=== PATIENT | male | born 1950 | race Caucasian/White ===

== ENCOUNTER 2017-06-22 12:27 | Inpatient (IN) | payer BC, MEDICARE ==
[~2017-06-22] VITALS: Ht 185.4 cm; Wt 122.1 kg
[~2017-06-22 12:27] MED LIST: ALLO300 PO; AMLO5 PO; ASPI325 PO; ASPI81CH PO; CYAN500 PO; Diovan320 MG PO; ERGO400 PO; INDO50; Indomethacin50 MG PO; METO50 PO; PANT40 PO; ROSU10TA PO; TRAM50 PO
[2017-06-22 13:11] LABS: BASOPHILS ABSOLUTE AUTO 0.07 K/mm3 (0.00-0.23); BASOPHILS PERCENT AUTO 0 % (0-2); EOSINOPHILS ABSOLUTE AUTO 0.09 K/mm3 (0.00-0.68); EOSINOPHILS PERCENT AUTO 1 % (0-6); Hematocrit 26.9 % (37.0-53.0); Hemoglobin 8.7 g/dL (13.5-17.5); IMMATURE GRAN ABSOLUTE AUTO 0.21 K/mm3 (0.00-0.10); IMMATURE GRAN PERCENT AUTO 1 % (0-1); LYMPHOCYTES ABSOLUTE AUTO 2.22 K/mm3 (0.84-5.20); LYMPHOCYTES PERCENT AUTO 13 % (21-46); MONOCYTES ABSOLUTE AUTO 0.98 K/mm3 (0.16-1.47); MONOCYTES PERCENT AUTO 6 % (4-13); Mean Corpuscular HGB 29.9 pg (26.0-34.0); Mean Corpuscular HGB Conc 32.3 g/dL (31.5-36.5); Mean Corpuscular Volume 92 fL (80-100); Mean Platelet Volume 10.7 fL (9.1-12.4); NEUTROPHILS ABSOLUTE AUTO 13.92 K/mm3 (1.96-9.15); NEUTROPHILS PERCENT AUTO 80 % (41-73); NRBC ABSOLUTE 0.02 K/mm3 (0.00-0.02); NRBC Auto 0.1 /100 WBC (0.0-0.2); Platelet Count 239 K/mm3 (150-400); RDW Coefficient Variation 17.1 % (11.7-14.2); RDW Standard Deviation 57.4 fL (35.1-46.3); Red Blood Cell Count 2.91 M/mm3 (4.30-5.90); White Blood Cell Count 17.49 K/mm3 (4.00-11.30)
[2017-06-22 13:22] LABS: International Normalized Ratio 1.07; Prothrombin Time Results 11.1 Sec (9.7-11.5)
[2017-06-22 13:33] LABS: Albumin, Blood 3.2 g/dL (3.4-5.0); Albumin/Globulin Ratio 0.9 (0.8-1.8); Bilirubin, Total 0.4 mg/dL (0.1-1.0); Bun/Creatinine Ratio 37.6 (12.0-20.0); Calcium, Blood 8.1 mg/dL (8.5-10.1); Creatinine, Blood 1.73 mg/dL (0.60-1.20); Globulin, Blood 3.6 g/dL (2.2-4.0); Potassium, Blood 3.6 mmol/L (3.5-5.5); Total Protein, Blood 6.8 g/dL (6.4-8.2)
[2017-06-22] MEDS ORDERED: METO50 PO (13:43)
[2017-06-22 18:46] LABS: Bilirubin, Urine Neg (Neg); Blood, Urine Neg (Neg); Glucose Qualitative, Urine Neg (Neg); Ketones, Urine Neg (Neg); Leukocyte Esterase, Urine Neg (Neg); Nitrite, Urine Neg (Neg); Protein, Urine Neg (Neg); Specific Gravity, Urine 1.015 (1.003-1.022); Urobilinogen, Urine NORM (Normal)
[2017-06-22 18:58] LABS: Hematocrit 24.5 % (37.0-53.0); Hemoglobin 7.9 g/dL (13.5-17.5)
[2017-06-22 18:58] LABS: Appearance, Urine Clear (Clear); Color, Urine Pale Yellow (P-Yellow)
[2017-06-23 02:37] LABS: BASOPHILS ABSOLUTE AUTO 0.04 K/mm3 (0.00-0.23); BASOPHILS PERCENT AUTO 0 % (0-2); EOSINOPHILS ABSOLUTE AUTO 0.26 K/mm3 (0.00-0.68); EOSINOPHILS PERCENT AUTO 2 % (0-6); Hemoglobin 7.1 g/dL (13.5-17.5); IMMATURE GRAN PERCENT AUTO 1 % (0-1); LYMPHOCYTES ABSOLUTE AUTO 2.74 K/mm3 (0.84-5.20); LYMPHOCYTES PERCENT AUTO 19 % (21-46); MONOCYTES ABSOLUTE AUTO 0.94 K/mm3 (0.16-1.47); MONOCYTES PERCENT AUTO 7 % (4-13); Mean Corpuscular HGB 30.1 pg (26.0-34.0); Mean Corpuscular HGB Conc 32.3 g/dL (31.5-36.5); Mean Corpuscular Volume 93 fL (80-100); Mean Platelet Volume 11.1 fL (9.1-12.4); NEUTROPHILS ABSOLUTE AUTO 10.04 K/mm3 (1.96-9.15); NEUTROPHILS PERCENT AUTO 71 % (41-73); NRBC ABSOLUTE 0.02 K/mm3 (0.00-0.02); NRBC Auto 0.1 /100 WBC (0.0-0.2); Platelet Count 198 K/mm3 (150-400); RDW Coefficient Variation 17.1 % (11.7-14.2); RDW Standard Deviation 56.2 fL (35.1-46.3); Red Blood Cell Count 2.36 M/mm3 (4.30-5.90); White Blood Cell Count 14.22 K/mm3 (4.00-11.30)
[2017-06-23 08:35] LABS: Hematocrit 22.1 % (37.0-53.0); Hemoglobin 7.1 g/dL (13.5-17.5)
[2017-06-23 19:19] LABS: Hematocrit 21.4 % (37.0-53.0); Hemoglobin 6.8 g/dL (13.5-17.5)
[2017-06-24 06:09] LABS: Hepatitis C Antibody Non Reactive (NR)
[2017-06-24 08:18] LABS: Hematocrit 26.7 % (37.0-53.0); Hemoglobin 8.7 g/dL (13.5-17.5)
[2017-06-24 19:19] LABS: Hematocrit 26.1 % (37.0-53.0); Hemoglobin 8.5 g/dL (13.5-17.5)
[2017-06-25 08:35] LABS: BASOPHILS ABSOLUTE AUTO 0.06 K/mm3 (0.00-0.23); BASOPHILS PERCENT AUTO 1 % (0-2); EOSINOPHILS ABSOLUTE AUTO 0.36 K/mm3 (0.00-0.68); EOSINOPHILS PERCENT AUTO 3 % (0-6); Hemoglobin 8.3 g/dL (13.5-17.5); IMMATURE GRAN ABSOLUTE AUTO 0.15 K/mm3 (0.00-0.10); IMMATURE GRAN PERCENT AUTO 1 % (0-1); LYMPHOCYTES ABSOLUTE AUTO 1.77 K/mm3 (0.84-5.20); LYMPHOCYTES PERCENT AUTO 16 % (21-46); MONOCYTES ABSOLUTE AUTO 0.85 K/mm3 (0.16-1.47); MONOCYTES PERCENT AUTO 8 % (4-13); Mean Corpuscular HGB 30.6 pg (26.0-34.0); Mean Corpuscular HGB Conc 33.2 g/dL (31.5-36.5); Mean Corpuscular Volume 92 fL (80-100); NEUTROPHILS ABSOLUTE AUTO 8.08 K/mm3 (1.96-9.15); NEUTROPHILS PERCENT AUTO 72 % (41-73); Platelet Count 205 K/mm3 (150-400); RDW Coefficient Variation 16.8 % (11.7-14.2); Red Blood Cell Count 2.71 M/mm3 (4.30-5.90); White Blood Cell Count 11.27 K/mm3 (4.00-11.30)
[2017-06-25 08:53] LABS: Alanine Aminotransfer (ALT/SGP 52 U/L (12-78); Albumin, Blood 2.8 g/dL (3.4-5.0); Albumin/Globulin Ratio 0.9 (0.8-1.8); Alk Phos 56 U/L (50-136); Anion Gap 5 mmol/L (6-16); Aspartate Aminotrans (AST/SGOT 48 U/L (12-37); Bilirubin, Total 0.7 mg/dL (0.1-1.0); Blood Urea Nitrogen 18 mg/dL (8-24); Bun/Creatinine Ratio 14.3 (12.0-20.0); CO2, Blood 26 mmol/L (21-32); Calcium, Blood 8.2 mg/dL (8.5-10.1); Chloride, Blood 106 mmol/L (98-108); Creatinine, Blood 1.26 mg/dL (0.60-1.20); Globulin, Blood 3.2 g/dL (2.2-4.0); Glomerular Filtration Rate >60 (60-); Glucose, Blood 111 mg/dL (70-99); Potassium, Blood 3.9 mmol/L (3.5-5.5); Sodium, Blood 137 mmol/L (136-145)
[2017-06-25] MEDS ORDERED: ASPI325 PO (13:43)
[2017-06-25] MEDS ORDERED: METR500 PO (13:43)
[2017-06-25] MEDS ORDERED: CLAR500 PO (13:43)
[2017-06-25] MEDS ORDERED: PANT40 PO (13:44)
== END 2017-06-25 14:21 | disposition home or self-care (01) | DRG 378 ==
LOC: ER 12:27 → ICUW 12:28 → ICUE 12:28 → MEDS 06-23 14:51 → ENPENDDIS 06-25 12:00 → MEDS 06-25 14:21
PROVIDERS: Emergency Medicine; Internal Medicine; Internal Medicine Gastroenterology
PROC: 0DB68ZX Excision of Stomach, Via Natural or Artificial Opening Endoscopic, Diagnostic (ICD-10-PCS; principal; 2017-06-23 12:00)
DX: K29.71 Gastritis, unspecified, with bleeding (principal); D62 Acute posthemorrhagic anemia; F10.99 Alcohol use, unspecified with unspecified alcohol-induced disorder; E11.59 Type 2 diabetes mellitus with other circulatory complications; E78.5 Hyperlipidemia, unspecified; I48.0 Paroxysmal atrial fibrillation; K64.9 Unspecified hemorrhoids; K70.10 Alcoholic hepatitis without ascites; I12.9 Hypertensive chronic kidney disease with stage 1 through stage 4 chronic kidney disease, or unspecified chronic kidney disease; M10.9 Gout, unspecified; M19.90 Unspecified osteoarthritis, unspecified site; N18.3 Chronic kidney disease, stage 3 (moderate); Z79.82 Long term (current) use of aspirin; Z87.11 Personal history of peptic ulcer disease; Z87.891 Personal history of nicotine dependence; Z96.652 Presence of left artificial knee joint; Z88.0 Allergy status to penicillin
CPT/HCPCS: 36415; 36430; 80053; 81003; 82272; 82947; 85014; 85018; 85025; 85610; 86704; 86706; 86708; 86803; 86850; 86900; 86901; 86923; 87340; 88305; 88342; 93005; 93010; 96361; 96374; 96376; 99285; C9113; J7030; J7120; P9016

== ENCOUNTER → 2017-07-18 | Outpatient (CLI) | payer BC ==
[~2017-07-18] MED LIST changes: +CLAR500 PO; +METR500 PO
[2017-07-18 08:15] LABS: Hematocrit 31.6 % (37.0-53.0); Hemoglobin 9.8 g/dL (13.5-17.5)
[2017-07-18 08:37] LABS: Albumin, Blood 3.5 g/dL (3.4-5.0); Anion Gap 10 mmol/L (6-16); Blood Urea Nitrogen 20 mg/dL (8-24); Bun/Creatinine Ratio 11.6 (12.0-20.0); CO2, Blood 25 mmol/L (21-32); Calcium, Blood 9.7 mg/dL (8.5-10.1); Chloride, Blood 105 mmol/L (98-108); Creatinine, Blood 1.72 mg/dL (0.60-1.20); Glomerular Filtration Rate 42 (60-); Glucose, Blood 201 mg/dL (70-99); Phosphorus, Blood 3.7 mg/dL (2.5-4.9); Potassium, Blood 4.7 mmol/L (3.5-5.5); Sodium, Blood 140 mmol/L (136-145)
== END | disposition home or self-care (01) ==
LOC: LAB SHORT 07:25 → OLS 07:25
PROVIDERS: Internal Medicine
DX: I12.9 Hypertensive chronic kidney disease with stage 1 through stage 4 chronic kidney disease, or unspecified chronic kidney disease (principal); N18.3 Chronic kidney disease, stage 3 (moderate); D63.0 Anemia in neoplastic disease
CPT/HCPCS: 36415; 80069; 82570; 83970; 84156; 85014; 85018

== ENCOUNTER → 2017-12-13 | Outpatient (CLI) | payer BC ==
[2017-12-13 13:24] LABS: Stool Occult Bld Immuno 1 Positive (NEGATIVE)
== END | disposition home or self-care (01) ==
LOC: LAB SHORT 08:00 → LAB 08:00
PROVIDERS: Family Medicine
DX: D50.9 Iron deficiency anemia, unspecified (principal)
CPT/HCPCS: 82274

== ENCOUNTER 2018-01-25 10:19 | Day surgery (SDC) | payer BC ==
[~2018-01-25] VITALS: Ht 185.4 cm; Wt 115.8 kg
[~2018-01-25 10:19] MED LIST changes: +Aspir 8181 MG PO; +B-121000 MC2 PO; +Crestor40 MG PO; +EZET10 PO; +LOSA25 PO; +Metoprolol Tar100 MG PO; +Vitamin D2000 UNIT PO; +XARELTO15 MG PO
== END 2018-01-25 11:23 | disposition home or self-care (01) ==
LOC: ORSCSDS 10:19
DX: K62.5 Hemorrhage of anus and rectum (principal); Z53.9 Procedure and treatment not carried out, unspecified reason; K27.9 Peptic ulcer, site unspecified, unspecified as acute or chronic, without hemorrhage or perforation
CPT/HCPCS: J2250; J7120

== ENCOUNTER 2018-03-27 12:57 | Day surgery (SDC) | payer BC ==
[~2018-03-27] VITALS: Ht 185.4 cm; Wt 113.4 kg
== END 2018-03-27 14:58 | disposition home or self-care (01) ==
LOC: ORSCSDS 12:57
PROVIDERS: Internal Medicine Gastroenterology
PROC: 0D5E8ZZ Destruction of Large Intestine, Via Natural or Artificial Opening Endoscopic (ICD-10-PCS; principal; 2018-03-27 14:15)
PROC: 0DBM8ZX Excision of Descending Colon, Via Natural or Artificial Opening Endoscopic, Diagnostic (ICD-10-PCS; principal; 2018-03-27 14:15)
PROC: 0D598ZZ Destruction of Duodenum, Via Natural or Artificial Opening Endoscopic (ICD-10-PCS; principal; 2018-03-27 14:15)
PROC: 0DBL8ZX Excision of Transverse Colon, Via Natural or Artificial Opening Endoscopic, Diagnostic (ICD-10-PCS; principal; 2018-03-27 14:15)
PROC: 0DB68ZX Excision of Stomach, Via Natural or Artificial Opening Endoscopic, Diagnostic (ICD-10-PCS; principal; 2018-03-27 14:15)
DX: K62.5 Hemorrhage of anus and rectum (principal); D12.4 Benign neoplasm of descending colon; D12.3 Benign neoplasm of transverse colon; K64.1 Second degree hemorrhoids; K57.30 Diverticulosis of large intestine without perforation or abscess without bleeding; K27.9 Peptic ulcer, site unspecified, unspecified as acute or chronic, without hemorrhage or perforation; D50.9 Iron deficiency anemia, unspecified; K44.9 Diaphragmatic hernia without obstruction or gangrene; K29.70 Gastritis, unspecified, without bleeding; Q27.33 Arteriovenous malformation of digestive system vessel; I10 Essential (primary) hypertension; G47.33 Obstructive sleep apnea (adult) (pediatric); Z79.899 Other long term (current) drug therapy
CPT/HCPCS: 88305; 88342; J2250; J7120

== ENCOUNTER 2018-04-11 16:41 | Observation (INO) | payer BC, MEDICARE ==
[~2018-04-11] VITALS: Ht 185.4 cm; Wt 84.8 kg
[2018-04-11 17:54] LABS: BASOPHILS ABSOLUTE AUTO 0.09 K/mm3 (0.00-0.23); BASOPHILS PERCENT AUTO 1 % (0-2); EOSINOPHILS ABSOLUTE AUTO 0.01 K/mm3 (0.00-0.68); EOSINOPHILS PERCENT AUTO 0 % (0-6); Hematocrit 35.2 % (37.0-53.0); Hemoglobin 10.8 g/dL (13.5-17.5); IMMATURE GRAN ABSOLUTE AUTO 0.04 K/mm3 (0.00-0.10); IMMATURE GRAN PERCENT AUTO 0 % (0-1); LYMPHOCYTES ABSOLUTE AUTO 1.05 K/mm3 (0.84-5.20); LYMPHOCYTES PERCENT AUTO 9 % (21-46); MONOCYTES ABSOLUTE AUTO 0.81 K/mm3 (0.16-1.47); MONOCYTES PERCENT AUTO 7 % (4-13); Mean Corpuscular HGB 25.2 pg (26.0-34.0); Mean Corpuscular HGB Conc 30.7 g/dL (31.5-36.5); Mean Corpuscular Volume 82 fL (80-100); NEUTROPHILS ABSOLUTE AUTO 9.35 K/mm3 (1.96-9.15); NEUTROPHILS PERCENT AUTO 82 % (41-73); Platelet Count 268 K/mm3 (150-400); RDW Coefficient Variation 17.9 % (11.7-14.2); RDW Standard Deviation 52.5 fL (35.1-46.3); Red Blood Cell Count 4.29 M/mm3 (4.30-5.90); White Blood Cell Count 11.35 K/mm3 (4.00-11.30)
[2018-04-11 18:09] LABS: International Normalized Ratio 1.03; Prothrombin Time Results 10.9 Sec (9.7-11.5)
[2018-04-11 18:13] LABS: Bun/Creatinine Ratio 9.5 (12.0-20.0); Calcium, Blood 9.5 mg/dL (8.5-10.1); Creatinine, Blood 4.64 mg/dL (0.60-1.20); Potassium, Blood 4.3 mmol/L (3.5-5.5)
--- NOTE | 2018-04-11 19:53 | NUR ---
ARRIVAL TO UNIT Assumed care of pt upon arrival to unit at 1700. Pt is a direct admit from the office of Dr Ware. Pt arrived via wheelchair. Pt assisted into bed. Pt noticably tremulous. He states that shakiness started this morning, along with lightheadedness and dizziness. IV access started to right AC. Labs drawn from IV site. Telemetry placed. Pt is in rhythm that resembles irregular sinus tachycardia, however the rhythm is atypical atrial flutter per demographer, Dr Ware. Dr Ware in to see patient shortly after arrival. New orders given. Pt to be NPO at midnight for possible MARTHA tomorrow. Pt tells this RN that he is supoosed to wear CPAP at night. He also states that he drinks between 1 and 5 shots of whisky every night. This RN educated pt on signs and symptoms of alcohol withdrawal, as well as assessment for alcohol withdrawal. This RN placed call to Dr Ware to request order for CPAP, notify of alcohol intake and CIWA monitoring, and to notify of lab results- especially GFR and creatinine. New orders given. Provider also notified that this hospital does not carry Crestor and formulary substitution of this medication is atorvastatin which interacts negatively with diltiazem. Decision made by provider to not add cholesterol medication to orders tonight. Pt states that he sees Dr Flower for nephrology and does not want to see Dr Coffey. Call placed to Dr Ware to notify that pt will not be seen by nephrology tonight. Provider states he would like to be notified of BMP results. Report given to Shea markham RN. .
--- NOTE | 2018-04-11 21:40 | NUR ---
RHYTHM CONVERSION PT CONVERTED TO SINUS BRADYCARDIA BETWEEN 2039 AND 2139. NO DIFINITIVE CONVERSION TIME, BUT HEART RATED DECREASED, PT STARTED TO DEVELOP SINUS BEATS. HEART RHYTHM CURRENTLY SINUS BRADYCARDIA WITH A RATE IN THE 50'S. NO CHANGE TO PATIENT CONDITION. CURRENTLY RESTING IN BED COMFORTABLY. CALL LIGHT IN REACH.
--- NOTE | 2018-04-11 22:00 | NUR ---
PHYSICIAN CONTACTED- NURSE NOTIFY ORDER TO CONTACT PHYSICIAN WITH RESULTS OF BNP AND TROPONIN FOR POTENTIAL ORDERS TO START FLUIDS. NO ANSWER, VOICEMAIL LEFT ON SELL PHONE.
--- NOTE | 2018-04-11 23:06 | NUR ---
PHYSICIAN CONTACTED- ATTEMPTED CONTACT OF [facility] AGAIN TO REPORT RESULTS OF LABS AND RHYTHM CONVERSION. VOICEMAIL LEFT TO CALL DEPARTMENT IN REGARDS TO PATIENT.
[2018-04-12] MEDS ORDERED: ALLO100 PO (04:11)
[2018-04-12] MEDS ORDERED: INDOCIN PO (04:18)
[2018-04-12] MEDS ORDERED: SERT25 PO (04:21)
--- NOTE | 2018-04-12 07:27 | NUR ---
SHIFT SUMMARY- PT HAS REMAINED AOX4 THROUGHOUT SHIFT. VSS. PLEASANT AND COOPERATIVE WITH CARE. PT HAS REMAINED IN SINUS RHYTHM SINCE CONVERSION LAST NIGHT, CURRENT RATE IN THE 60'S. PT HAS RESTED WELL THROUGHOUT THE NIGHT. AMBULATES WITH STANDBY ASSIST TO THE BATHROOM WITHOUT DIFFICULTY. NO OTHER CHANGES NOTED FROM INITIAL ASSESSMENT. WILL CONTINUE TO MONITOR AND REPORT TO ONCOMING RN. BED IN LOW POSITION, CALL LIGHT IN REACH.
[2018-04-12 08:17] LABS: BASOPHILS ABSOLUTE AUTO 0.09 K/mm3 (0.00-0.23); BASOPHILS PERCENT AUTO 1 % (0-2); EOSINOPHILS ABSOLUTE AUTO 0.18 K/mm3 (0.00-0.68); EOSINOPHILS PERCENT AUTO 2 % (0-6); Hematocrit 34.1 % (37.0-53.0); Hemoglobin 10.3 g/dL (13.5-17.5); IMMATURE GRAN ABSOLUTE AUTO 0.02 K/mm3 (0.00-0.10); IMMATURE GRAN PERCENT AUTO 0 % (0-1); LYMPHOCYTES ABSOLUTE AUTO 1.74 K/mm3 (0.84-5.20); LYMPHOCYTES PERCENT AUTO 19 % (21-46); MONOCYTES ABSOLUTE AUTO 1.06 K/mm3 (0.16-1.47); MONOCYTES PERCENT AUTO 11 % (4-13); Mean Corpuscular HGB 24.5 pg (26.0-34.0); Mean Corpuscular HGB Conc 30.2 g/dL (31.5-36.5); Mean Corpuscular Volume 81 fL (80-100); Mean Platelet Volume 10.6 fL (9.1-12.4); NEUTROPHILS ABSOLUTE AUTO 6.27 K/mm3 (1.96-9.15); NEUTROPHILS PERCENT AUTO 67 % (41-73); Platelet Count 252 K/mm3 (150-400); RDW Coefficient Variation 17.9 % (11.7-14.2); RDW Standard Deviation 51.8 fL (35.1-46.3); Red Blood Cell Count 4.21 M/mm3 (4.30-5.90); White Blood Cell Count 9.36 K/mm3 (4.00-11.30)
[2018-04-12 08:31] LABS: Albumin, Blood 3.7 g/dL (3.4-5.0); Anion Gap 9 mmol/L (6-16); Blood Urea Nitrogen 42 mg/dL (8-24); Bun/Creatinine Ratio 10.3 (12.0-20.0); CO2, Blood 24 mmol/L (21-32); CPK Creatine Kinase 167 U/L (39-308); Calcium, Blood 9.2 mg/dL (8.5-10.1); Chloride, Blood 109 mmol/L (98-108); Creatinine, Blood 4.08 mg/dL (0.60-1.20); Glomerular Filtration Rate 16 (60-); Glucose, Blood 106 mg/dL (70-99); Phosphorus, Blood 3.3 mg/dL (2.5-4.9); Potassium, Blood 4.2 mmol/L (3.5-5.5); Sodium, Blood 142 mmol/L (136-145)
[2018-04-12 14:27] LABS: Bilirubin, Urine Neg (Neg); Blood, Urine 3+ (Neg); Glucose Qualitative, Urine Neg (Neg); Ketones, Urine Neg (Neg); Leukocyte Esterase, Urine Neg (Neg); Nitrite, Urine Neg (Neg); Protein, Urine 3+ (Neg); Urobilinogen, Urine NORM (Normal)
[2018-04-12 15:09] LABS: Appearance, Urine Hazy (Clear); Color, Urine Yellow (P-Yellow)
[2018-04-12 15:10] LABS: Red Blood Cells, Urine 0-2 /hpf (0-2); Squamous Epithelial Cells Not Seen /hpf (Few); White Blood Cells, Urine 0-2 /hpf (0-5)
[2018-04-12 15:11] LABS: Amorphous Light ({null, 0-Heavy}); Bacteria Few /hpf
--- NOTE | 2018-04-12 18:26 | NUR ---
SHIFT SUMMARY PT RESTING IN BED. ALERT AND ORIENTED X3. DENIES PAIN THROUGHOUT THE DAY. VSS EXCEPT NOTED HYPERTENSION. LUNG SOUNDS CLEAR, HEART TONES REGULAR. WILL CONTINUE TO MONITOR.
[2018-04-13 04:15] LABS: Hematocrit 32.3 % (37.0-53.0); Hemoglobin 9.8 g/dL (13.5-17.5)
[2018-04-13 04:33] LABS: Albumin, Blood 3.4 g/dL (3.4-5.0); Anion Gap 10 mmol/L (6-16); Blood Urea Nitrogen 42 mg/dL (8-24); Bun/Creatinine Ratio 12.5 (12.0-20.0); CO2, Blood 22 mmol/L (21-32); Calcium, Blood 8.5 mg/dL (8.5-10.1); Chloride, Blood 108 mmol/L (98-108); Creatinine, Blood 3.37 mg/dL (0.60-1.20); Glomerular Filtration Rate 19 (60-); Glucose, Blood 90 mg/dL (70-99); Magnesium, Blood 1.6 mg/dL (1.6-2.4); Phosphorus, Blood 3.4 mg/dL (2.5-4.9); Potassium, Blood 4.1 mmol/L (3.5-5.5); Sodium, Blood 140 mmol/L (136-145)
--- NOTE | 2018-04-13 05:35 | NUR ---
SHIFT SUMMARY PATIENT ALERT AND ORIENTED X 3 THROUGHOUT SHIFT. HE WAS INDPENDENT IN THE ROOM AND SLEPT WELL T/O THE NIGHT. HE WAS PLEASANT AND COOPERATIVE T/O SHIFT. HE WOKE EASILY FOR VITALS AND ASSESSMENTS. PT DENIED ANY UNMET NEEDS DURING THE NIGHT AND EFFECTIVELY MAKE NEEDS KNOWN. PT USED THE CALL LIGHT APPROPRIATELY AND IT WAS LEFT WITHIN EASY REACH. PT DENIED ANY COMPLAINTS OF PAIN DURING THE NIGHT. HE HAS HIS BED IN THE LOWEST POSITION WITH 2X SIDE RAILS IN PLACE. NO ACUTE CHANGES WERE OBSERVED TO LOC OR MENTATION. HE WILL CONTINUE TO BE MONITORED UNTIL HANDOFF TO DAYSHIFT RN.
--- NOTE | 2018-04-13 08:03 | NUR ---
pt laying in bed awake a/ox3, watching tv, denies any complaints of pain, states he slept well, lungs are clear t/o, resp even and unlabored, no cough noted, hrr, tele in place running sr per monitor, see strip, no edema noted, ppp+1, cap refill <3sec, vs stable, afebrile, iv site is clear and patent, btx4, abd round soft nontender, voids without diff, skin c/w/d, maew, bradley call light in reach. states he is ready to go home today.
[2018-04-13] MEDS ORDERED: AMLO10 PO (16:20)
[2018-04-13] MEDS ORDERED: CARV25 PO (16:21)
--- NOTE | 2018-04-13 17:16 | NUR ---
pt has been discharged to home, he verbalized understanding of instructions, and appts, new meds called into [facility], iv removed intact, he has all belongings, left via wheelchair with managing partner [employer] [place] in attendence.
[2018-04-17 15:07] LABS: ATYPICAL PANCA <1:20 titer ({null, Neg:<1:20}); CYTOPLASMIC (C-ANCA) <1:20 titer ({null, Neg:<1:20}); PERINUCLEAR (P-ANCA) <1:20 titer ({null, Neg:<1:20})
[2018-04-17 17:07] LABS: A/G RATIO 1.1 (0.7-1.7); ALBUMIN 3.4 g/dL (2.9-4.4); ALPHA-1-GLOBULIN 0.3 g/dL (0.0-0.4); ALPHA-2-GLOBULIN 1.1 g/dL (0.4-1.0); BETA GLOBULIN 1.1 g/dL (0.7-1.3); GAMMA GLOBULIN 0.8 g/dL (0.4-1.8); GLOBULIN, TOTAL 3.2 g/dL (2.2-3.9); IMMUNOGLOBULIN A, QN, SERUM 338 mg/dL (61-437); IMMUNOGLOBULIN G, QN, SERUM 630 mg/dL (700-1600); IMMUNOGLOBULIN M, QN, SERUM 83 mg/dL (20-172); M-SPIKE 0.2 g/dL (Not Observed); PROTEIN, TOTAL, SERUM 6.6 g/dL (6.0-8.5)
== END 2018-04-13 17:21 | disposition home or self-care (01) ==
LOC: PCU 16:41
PROVIDERS: Internal Medicine; ADMIT Internal Medicine Cardiovascular Disease
DX: I48.4 Atypical atrial flutter (principal); M19.90 Unspecified osteoarthritis, unspecified site; G47.33 Obstructive sleep apnea (adult) (pediatric); I12.9 Hypertensive chronic kidney disease with stage 1 through stage 4 chronic kidney disease, or unspecified chronic kidney disease; N18.9 Chronic kidney disease, unspecified; I48.0 Paroxysmal atrial fibrillation; E66.9 Obesity, unspecified; N17.9 Acute kidney failure, unspecified; E78.5 Hyperlipidemia, unspecified; D63.1 Anemia in chronic kidney disease; Z79.899 Other long term (current) drug therapy; Z86.73 Personal history of transient ischemic attack (TIA), and cerebral infarction without residual deficits; Z87.891 Personal history of nicotine dependence; Z88.8 Allergy status to other drugs, medicaments and biological substances; Z88.0 Allergy status to penicillin; Z79.01 Long term (current) use of anticoagulants
CPT/HCPCS: 36415; 71045; 76770; 80048; 80069; 81001; 82550; 82784; 83735; 83880; 84165; 84300; 84484; 85014; 85018; 85025; 85610; 86038; 86256; 86334; 93005; 93010; 93306; 94762; G0378; J7030

== ENCOUNTER 2018-05-18 12:07 | Emergency (ER) | payer BC, MEDICARE ==
[~2018-05-18] VITALS: Ht 185.4 cm; Wt 102.1 kg
[~2018-05-18 12:07] MED LIST changes: +ALLO100 PO; +AMLO10 PO; +CARV25 PO; +INDOCIN PO; +SERT25 PO
[2018-05-18 12:48] LABS: BASOPHILS ABSOLUTE AUTO 0.07 K/mm3 (0.00-0.23); BASOPHILS PERCENT AUTO 1 % (0-2); EOSINOPHILS ABSOLUTE AUTO 0.26 K/mm3 (0.00-0.68); EOSINOPHILS PERCENT AUTO 3 % (0-6); Hematocrit 30.2 % (37.0-53.0); Hemoglobin 9.2 g/dL (13.5-17.5); IMMATURE GRAN ABSOLUTE AUTO 0.04 K/mm3 (0.00-0.10); IMMATURE GRAN PERCENT AUTO 1 % (0-1); LYMPHOCYTES ABSOLUTE AUTO 1.39 K/mm3 (0.84-5.20); LYMPHOCYTES PERCENT AUTO 18 % (21-46); MONOCYTES ABSOLUTE AUTO 0.73 K/mm3 (0.16-1.47); MONOCYTES PERCENT AUTO 9 % (4-13); Mean Corpuscular HGB 24.9 pg (26.0-34.0); Mean Corpuscular HGB Conc 30.5 g/dL (31.5-36.5); Mean Corpuscular Volume 82 fL (80-100); Mean Platelet Volume 10.1 fL (9.1-12.4); NEUTROPHILS PERCENT AUTO 68 % (41-73); Platelet Count 235 K/mm3 (150-400); RDW Coefficient Variation 17.3 % (11.7-14.2); RDW Standard Deviation 51.5 fL (35.1-46.3); White Blood Cell Count 7.89 K/mm3 (4.00-11.30)
[2018-05-18 13:02] LABS: Alanine Aminotransfer (ALT/SGP 21 U/L (12-78); Albumin, Blood 3.6 g/dL (3.4-5.0); Albumin/Globulin Ratio 0.9 (0.8-1.8); Alk Phos 85 U/L (50-136); Anion Gap 13 mmol/L (6-16); Aspartate Aminotrans (AST/SGOT 25 U/L (12-37); Bilirubin, Total 0.5 mg/dL (0.1-1.0); Blood Urea Nitrogen 20 mg/dL (8-24); CO2, Blood 22 mmol/L (21-32); Chloride, Blood 105 mmol/L (98-108); Creatinine, Blood 1.54 mg/dL (0.60-1.20); Ethanol (Alcohol), Blood, Med <3 mg/dL; Globulin, Blood 3.9 g/dL (2.2-4.0); Glomerular Filtration Rate 48 (60-); Glucose, Blood 158 mg/dL (70-99); Potassium, Blood 4.6 mmol/L (3.5-5.5); Sodium, Blood 140 mmol/L (136-145); Total Protein, Blood 7.5 g/dL (6.4-8.2)
== END 2018-05-18 15:10 | disposition home or self-care (01) ==
LOC: ER 12:07
PROVIDERS: Emergency Medicine
DX: R56.9 Unspecified convulsions (principal); I12.9 Hypertensive chronic kidney disease with stage 1 through stage 4 chronic kidney disease, or unspecified chronic kidney disease; N18.9 Chronic kidney disease, unspecified; G47.30 Sleep apnea, unspecified; E78.5 Hyperlipidemia, unspecified; I48.91 Unspecified atrial fibrillation; Z88.0 Allergy status to penicillin; Z88.5 Allergy status to narcotic agent; Z79.899 Other long term (current) drug therapy; Z86.73 Personal history of transient ischemic attack (TIA), and cerebral infarction without residual deficits; Z87.891 Personal history of nicotine dependence
CPT/HCPCS: 70450; 80053; 85025; 93005; 93010; 99285-25; G0480

== ENCOUNTER 2018-09-29 08:44 | Day surgery (SDC) | payer BC ==
[~2018-09-29] VITALS: Ht 185.4 cm; Wt 106.8 kg
[~2018-09-29 08:44] MED LIST changes: +Carvedilol12.5 MG PO; +OXYC5 PO
== END 2018-09-29 11:32 | disposition home or self-care (01) ==
LOC: ORSCSDS 08:44
PROVIDERS: Internal Medicine Gastroenterology
PROC: 0W3P8ZZ Control Bleeding in Gastrointestinal Tract, Via Natural or Artificial Opening Endoscopic (ICD-10-PCS; principal; 2018-09-29 10:30)
PROC: 0DB58ZX Excision of Esophagus, Via Natural or Artificial Opening Endoscopic, Diagnostic (ICD-10-PCS; principal; 2018-09-29 10:30)
DX: D50.9 Iron deficiency anemia, unspecified (principal); Q27.33 Arteriovenous malformation of digestive system vessel; K21.0 Gastro-esophageal reflux disease with esophagitis; K44.9 Diaphragmatic hernia without obstruction or gangrene; I12.9 Hypertensive chronic kidney disease with stage 1 through stage 4 chronic kidney disease, or unspecified chronic kidney disease; N18.3 Chronic kidney disease, stage 3 (moderate); I48.91 Unspecified atrial fibrillation; G47.33 Obstructive sleep apnea (adult) (pediatric); Z86.73 Personal history of transient ischemic attack (TIA), and cerebral infarction without residual deficits; G40.909 Epilepsy, unspecified, not intractable, without status epilepticus; Z79.899 Other long term (current) drug therapy
CPT/HCPCS: 82947; 88305; J2250; J2704; J7030; J7120

== ENCOUNTER 2020-04-14 10:00 | Day surgery (SDC) | payer MEDICARE, OTHER ==
[~2020-04-14] VITALS: Ht 185.4 cm; Wt 109.0 kg
[2020-04-14] MEDS ORDERED: AMLO10 PO (11:22)
--- NOTE | 2020-04-14 11:58 | NUR ---
LOOP RECORDER EXPLANT DONE PER STERILE TECHNIQUE. PT RECEIVED LOCAL LIDO ONLY. SITE DRESSED PER STERILE TECHNIQUE. PT GIVEN DISCHARGE INSTRUCTIONS AND VERBALIZES UNDERSTANDING. PT TO PRIVATE VEHICLE.
== END 2020-04-14 22:35 | disposition home or self-care (01) ==
LOC: MHTC 10:00
DX: Z45.09 Encounter for adjustment and management of other cardiac device (principal); I48.0 Paroxysmal atrial fibrillation; I48.92 Unspecified atrial flutter; I12.9 Hypertensive chronic kidney disease with stage 1 through stage 4 chronic kidney disease, or unspecified chronic kidney disease; N18.30 Chronic kidney disease, stage 3 unspecified; D63.1 Anemia in chronic kidney disease; E78.5 Hyperlipidemia, unspecified; G47.33 Obstructive sleep apnea (adult) (pediatric); Z99.89 Dependence on other enabling machines and devices; Z79.899 Other long term (current) drug therapy; Z88.8 Allergy status to other drugs, medicaments and biological substances; Z88.0 Allergy status to penicillin; Z87.891 Personal history of nicotine dependence
CPT/HCPCS: 33286

== ENCOUNTER → 2023-01-25 | Outpatient (CLI) | payer MEDICARE, OTHER ==
[~2023-01-25] MED LIST changes: +Calcium Carbon500 MG; +LOSA50; +METO100; +PROLIA60 MG/1 ML
[2023-01-25 13:29] LABS: Creatinine, Urine Random 53.4 mg/dL (27.00-270.00); Protein, Urine Random 87.8 mg/dL (0.0-11.9); Protein/Creat Ratio, Ur Random 1.6
== END | disposition home or self-care (01) ==
LOC: LAB SHORT 10:02 → LAB 10:02
PROVIDERS: Hospitalist
DX: N18.31 Chronic kidney disease, stage 3a (principal)
CPT/HCPCS: 82570; 84156